=== PATIENT | female | born 1985 | race African-American/Black ===

== ENCOUNTER 2021-04-20 21:23 | Observation (INO) ==
[2021-04-20] MEDS ORDERED: ASPIRIN 325 MG TABLET PO STA (22:45)
[2021-04-20] MEDS ORDERED: ALUM/MAG/SIMETH/LIDO VISC 1:1 30 ML BOTTLE PO STA (22:45)
[2021-04-20] MEDS ORDERED: MORPHINE 2 MG/1 ML SYRINGE IV STA (22:45)
[2021-04-20] MEDS ORDERED: METHOCARBAMOL 1,000 MG/10 ML VIAL IV STA (22:45)
[2021-04-20] MEDS ORDERED: ONDANSETRON 4 MG/2 ML VIAL IV STA (22:45)
[2021-04-20 23:11] LABS: Basophils % 0.4 % (0.0-0.8); Eosinophils % 2.2 % (0.00-10.9); Hemoglobin 12.3 GM/DL (12.0-16.0); Immature Granulocytes % 0.3 %; Lymphocytes % 36.6 % (21.3-54.2); Mean Corpuscular HGB Conc 33.2 GM/DL (32-36); Mean Corpuscular Volume 87.9 FL (87-102); Mean Platelet Volume 10.5 FL (9.6-12.0); Monocytes % 6.5 % (1.7-12.7); Platelet Count 444 T/CUMM (130-400); Red Blood Count 4.21 MC/CUMM (3.8-5.5); Red Cell Distribution Width 14.2 % (9.3-17.3); White Blood Count 9.6 T/CUMM (4-12)
[2021-04-20 23:12] LABS: Eosinophils # 0.2 10*3/uL (0.0-0.87); Immature Granulocytes Absolute 0.03 #; Lymphocytes # 3.5 10*3/uL (1.4-4.0)
[2021-04-20 23:43] LABS: Alanine Aminotransferase 18 U/L (13-56); Albumin 3.8 G/DL (3.4-5.0); Alkaline Phosphatase 62 U/L (45-117); Aspartate Amino Transferase 19 U/L (0-37); Bilirubin,Total < 0.39 MG/DL (0.20-1.00); Blood Urea Nitrogen 11 MG/DL (7-18); Carbon Dioxide 24 MMOL/L (21-32); Estimated Glom Filtration Rate 106 ML/MIN; Glucose 117 MG/DL (74-106); Osmolality,Calculated 272.8 MOS/KG (273-304); Potassium 4.2 MMOL/L (3.5-5.1); Sodium 137 MMOL/L (136-145); Total Protein 7.5 G/DL (6.4-8.2)
[2021-04-20 23:53] LABS: Bilirubin,Urine Negative (Negative); Blood, Urine Negative (Negative); Glucose,Urine (UA) Negative (Negative); Ketones,Urine Negative (Negative); Mucus,Urine Occasional /LPF (Occasional); Nitrite,Urine Negative (Negative); Protein,Urine Negative; RBC,Urine 6 /HPF (0-4); Squamous Epithelial Cell,Urine Occasional /HPF (0-10); Urine Appearance CLEAR (Clear); Urine Color Yellow (Yellow); Urine Specific Gravity 1.025 (1.001-1.035)
[2021-04-20 23:57] LABS: Barbiturates Screen,Urine Negative (Negative); Benzodiazepines Screen,Urine Negative (Negative); Cannabinoid Screen,Urine Positive (Negative); Opiate Screen,Urine Negative (Negative); Phencyclidine Screen,Urine Negative (Negative)
[2021-04-20 23:59] LABS: INR 0.9; PT Patient Result 10.1 SECS (10.5-12.0)
[2021-04-21 00:16] LABS: Amylase 134 U/L (25-115)
[2021-04-21] MEDS ORDERED: GLUCAGON 1 MG VIAL IM PRN (01:15)
[2021-04-21] MEDS ORDERED: DEXTROSE 50% 25 GM/50 ML VIAL IV PRN (01:15)
[2021-04-21] MEDS: SODIUM CHLORIDE 0.9% 1,000 ML IV SCH ×3 (02:19→18:12)
[2021-04-21] MEDS: MORPHINE 2 MG/1 ML SYRINGE IV PRN ×3 (04:24→18:15)
[2021-04-21 04:43] LABS: Basophils % 0.3 % (0.0-0.8); Eosinophils # 0.2 10*3/uL (0.0-0.87); Eosinophils % 2.4 % (0.00-10.9); Hematocrit 36.1 VOL% (35.7-47.0); Hemoglobin 11.9 GM/DL (12.0-16.0); Immature Granulocytes % 0.3 %; Immature Granulocytes Absolute 0.03 #; Lymphocytes # 2.9 10*3/uL (1.4-4.0); Lymphocytes % 32.8 % (21.3-54.2); Mean Corpuscular Volume 89.1 FL (87-102); Mean Platelet Volume 9.6 FL (9.6-12.0); Monocytes % 6.6 % (1.7-12.7); Neutrophils % 57.6 % (38.7-73.9); Platelet Count 391 T/CUMM (130-400); Red Blood Count 4.05 MC/CUMM (3.8-5.5); Red Cell Distribution Width 13.9 % (9.3-17.3); White Blood Count 8.8 T/CUMM (4-12)
[2021-04-21 05:13] LABS: Calcium 8.3 MG/DL (8.5-10.1); Osmolality,Calculated 272.8 MOS/KG (273-304); Risk Ratio 5.23
[2021-04-21] MEDS: ENOXAPARIN 40 MG/0.4 ML SYRINGE SUBCUT SCH (08:54)
[2021-04-21] MEDS: ONDANSETRON 4 MG/2 ML VIAL IV PRN ×2 (08:55→19:26)
[2021-04-21] MEDS: PANTOPRAZOLE 40 MG VIAL IV SCH (08:56)
[2021-04-22] MEDS: SODIUM CHLORIDE 0.9% 1,000 ML IV SCH ×2 (02:19→10:41)
[2021-04-22 05:11] LABS: Basophils % 0.5 % (0.0-0.8); Eosinophils # 0.2 10*3/uL (0.0-0.87); Eosinophils % 2.7 % (0.00-10.9); Hematocrit 34.6 VOL% (35.7-47.0); Hemoglobin 11.2 GM/DL (12.0-16.0); Immature Granulocytes % 0.2 %; Immature Granulocytes Absolute 0.01 #; Lymphocytes # 2.1 10*3/uL (1.4-4.0); Lymphocytes % 31.4 % (21.3-54.2); Mean Corpuscular HGB Conc 32.4 GM/DL (32-36); Mean Corpuscular Volume 88.3 FL (87-102); Mean Platelet Volume 9.7 FL (9.6-12.0); Monocytes % 8.7 % (1.7-12.7); Neutrophils % 56.5 % (38.7-73.9); Platelet Count 341 T/CUMM (130-400); Red Blood Count 3.92 MC/CUMM (3.8-5.5); Red Cell Distribution Width 13.9 % (9.3-17.3); White Blood Count 6.7 T/CUMM (4-12)
[2021-04-22 05:32] LABS: Alanine Aminotransferase 17 U/L (13-56); Albumin 3.2 G/DL (3.4-5.0); Alkaline Phosphatase 46 U/L (45-117); Aspartate Amino Transferase 15 U/L (0-37); Bilirubin,Direct < 0.100 MG/DL (0.0-0.20); Bilirubin,Indirect 0.3 MG/DL (0.0-1.0); Bilirubin,Total < 0.39 MG/DL (0.20-1.00)
[2021-04-22 05:36] LABS: Hypochromasia 1+; Microcytosis 1+
[2021-04-22 05:37] LABS: Platelet Estimate Normal
[2021-04-22 05:47] LABS: Albumin 3.1 G/DL (3.4-5.0); Bilirubin,Total 0.4 MG/DL (0.20-1.00); Calcium 7.8 MG/DL (8.5-10.1); Osmolality,Calculated 275.5 MOS/KG (273-304); Potassium 3.9 MMOL/L (3.5-5.1); Total Protein 6.5 G/DL (6.4-8.2)
[2021-04-22] MEDS: ENOXAPARIN 40 MG/0.4 ML SYRINGE SUBCUT SCH (09:00)
[2021-04-22] MEDS ORDERED: POLYETHYLENE GLYCOL POWDER 17 GM PACK PO SCH (09:00)
[2021-04-22] MEDS: PANTOPRAZOLE 40 MG VIAL IV SCH (09:01)
[2021-04-22] MEDS: MORPHINE 2 MG/1 ML SYRINGE IV PRN (09:02)
[2021-04-22 11:46] VITALS: BP 116/56
== END 2021-04-22 14:03 | disposition home or self-care (01) ==
LOC: N.EDINP 21:23 → N.ED 21:23 → N.EDINP 04-21 16:05 → N.3E 04-21 16:12
PROVIDERS: ADMIT Internal Medicine; ATTEND Internal Medicine